=== PATIENT | male | born 1990 | race Two or more races ===

== ENCOUNTER 2019-05-04 17:32 | Emergency (ER) | payer OTHER ==
[~2019-05-04] VITALS: Ht 180.3 cm; Wt 80.3 kg
[2019-05-04] MEDS ORDERED: ZITHROMAX500 MG PO (20:27)
[2019-05-04] MEDS ORDERED: TUSNEL LIQUID178 ML PO (20:27)
== END 2019-05-04 21:02 | disposition home or self-care (01) ==
LOC: ER 17:32
DX: B34.9 Viral infection, unspecified (principal)